=== PATIENT | male | born 1940 | race Caucasian/White ===

== ENCOUNTER → 2018-08-19 13:05 | Outpatient (CLI) | payer MEDICARE, BC ==
[2015-03-05 13:23] VITALS: BMI 28.7
[~2018-08-19 13:05] MED LIST: ACETAMINOPHEN325 MG; BAYER CHEWABLE81 MG PO; CLARITIN 10 MG10 MG PO; CORGARD20 MG PO; LIPITOR20 MG PO; NORVASC5 MG PO; SUPER B COMPLE150 MG PO; ZANTAC300 MG
== END | disposition home or self-care (01) ==
LOC: D.HCCARDIO 13:05
PROVIDERS: ATTEND Internal Medicine Cardiovascular Disease
DX: I25.10 Atherosclerotic heart disease of native coronary artery without angina pectoris (principal); I34.0 Nonrheumatic mitral (valve) insufficiency

== ENCOUNTER → 2019-04-11 07:58 | Outpatient (CLI) | payer MEDICARE, BC ==
[2015-03-05 13:23] VITALS: BMI 28.7
== END | disposition home or self-care (01) ==
LOC: D.HCCARDIO 07:58
PROVIDERS: ATTEND Internal Medicine Cardiovascular Disease
DX: I25.810 Atherosclerosis of coronary artery bypass graft(s) without angina pectoris (principal)

== ENCOUNTER → 2019-09-22 09:05 | Outpatient (CLI) | payer MEDICARE, BC ==
[2019-04-21 07:36] VITALS: BMI 27.9
[~2019-09-22 09:05] MED LIST changes: +FIBER-TABS625 MG PO; +GLUCOPHAGE500 MG PO; +LIPITOR80 MG PO; +LISINOPRIL5 MG PO; +MULTI-DAY VITAM1 TAB PO; +PEPCID40 MG PO; +PLAVIX75 MG PO
== END | disposition home or self-care (01) ==
LOC: D.HCCECHO 09:05
PROVIDERS: ATTEND Internal Medicine Cardiovascular Disease
DX: I10 Essential (primary) hypertension (principal)